=== PATIENT | female | born 1955 | race African-American/Black ===

== ENCOUNTER 2023-04-30 20:14 | Emergency (ER) | payer SELFPAY ==
[~2023-04-30] VITALS: Ht 162.6 cm; Wt 52.8 kg
[~2023-04-30 20:14] MED LIST: WELBUTRIN
[2023-04-30 20:46] VITALS: TEMP 98.3; O2SAT 100
[2023-04-30] MEDS ORDERED: KETOROLAC 60MG/2ML VIAL IM ONE (21:30)
[2023-04-30 21:45] VITALS: BP 180/86; PULSE 112; RESP 18
[2023-04-30] MEDS ORDERED: IBUPROFEN 400MG TABLET PO ONE (21:45)
[2023-04-30] MEDS ORDERED: NAPR-681 MT (23:42)
== END 2023-05-01 00:15 | disposition home or self-care (01) ==
LOC: ER 20:14
DX: M54.2 Cervicalgia (principal)
CPT/HCPCS: 99282; J1885

== ENCOUNTER 2023-05-27 23:30 | Emergency (ER) | payer SELFPAY ==
[~2023-05-27] VITALS: Ht 162.6 cm; Wt 54.0 kg
[~2023-05-27 23:30] MED LIST changes: +NAPR-681 MT
[2023-05-28 00:25] VITALS: BP 164/96; PULSE 95; RESP 18; TEMP 98.8; O2SAT 100
[2023-05-28] MEDS ORDERED: IBUP-2028 MT (00:35)
[2023-05-28] MEDS ORDERED: TOPUD MT (00:35)
== END 2023-05-28 01:00 | disposition home or self-care (01) ==
LOC: ER 23:30
DX: M54.2 Cervicalgia (principal); Z76.0 Encounter for issue of repeat prescription
CPT/HCPCS: 99282

== ENCOUNTER 2023-05-28 12:28 | Emergency (ER) | payer SELFPAY ==
[~2023-05-28] VITALS: Ht 157.5 cm; Wt 52.0 kg
[~2023-05-28 12:28] MED LIST changes: +IBUP-2028 MT; +TOPUD MT
[2023-05-28 12:54] VITALS: BP 152/65; RESP 16; TEMP 98.8; O2SAT 100
[2023-05-28 12:56] VITALS: PULSE 76
== END 2023-05-28 16:05 | disposition left against medical advice (07) ==
LOC: ER 12:51
DX: M54.2 Cervicalgia (principal); Z53.21 Procedure and treatment not carried out due to patient leaving prior to being seen by health care provider
CPT/HCPCS: 99281

== ENCOUNTER 2023-12-16 04:22 | Emergency (ER) | payer SELFPAY ==
[~2023-12-16] VITALS: Ht 162.6 cm; Wt 52.6 kg
[2023-12-16 04:52] VITALS: BP 140/75; PULSE 57; RESP 18; TEMP 98.5; O2SAT 94
[2023-12-16] MEDS: IBUPROFEN 600MG TABLET PO ONE (07:15)
== END 2023-12-16 11:13 | disposition home or self-care (01) ==
LOC: ER 04:22
DX: R52 Pain, unspecified (principal); Z59.00 Homelessness unspecified
CPT/HCPCS: 99281